=== PATIENT | male | born 1990 | race Caucasian/White ===

== ENCOUNTER 2024-08-30 02:34 | Emergency (ER) | payer OTHER, SELFPAY ==
[2024-08-30 02:43] VITALS: BP 150/92; PULSE 110; O2SAT 94
[2024-08-30 02:45] VITALS: BMI 25.1
[2024-08-30 02:47] VITALS: BP 107/80; PULSE 95; RESP 19; TEMP 36.8; O2SAT 99
[2024-08-30 03:00] LABS: MANUAL DIFF FLAG NO
[2024-08-30 03:01] LABS: Basophils Percent Auto 0.3 % (0-2); Eosinophils Absolute Auto 0.1 X10*3/uL (0.0-0.4); Hematocrit 36.2 % (42.0-52.0); Hemoglobin 12.8 g/dl (14.0-18.0); Imm Gran Abs Auto 0.02 X10*3/uL (0.00-0.03); Imm Gran Pct Auto 0.2 % (0.0-0.4); Lymphocytes Absolute Auto 2.3 X10*3/uL (1.2-4.9); Lymphocytes Percent Auto 25.5 % (20-40); Mean Corpuscular HGB Conc 35.4 g/dl (31.0-36.0); Mean Corpuscular Hemoglobin 28.9 pg (27.0-33.0); Mean Corpuscular Volume 81.7 fL (80.0-98.0); Mean Platelet Volume 9.6 fL (9.4-12.4); Monocytes Absolute Auto 0.9 X10*3/uL (0.1-1.2); Monocytes Percent Auto 9.7 % (2-11); Neutrophils Absolute Auto 5.8 x10*3/uL (2.0-8.3); Neutrophils Percent Auto 63.3 % (45-73); Platelet Count 268 X10*3/uL (160-400); Red Blood Count 4.43 X10*6/uL (4.60-5.80); Red Cell Distribution Width 12.9 % (11.0-16.0); White Blood Count 9.2 X10*3/uL (4.8-10.8)
--- NOTE | 2024-08-30 03:16 | ED_ITS ---
HPI - Psych General Chief Complaint: Psychiatric Symptoms Stated Complaint: behavioral health/ detox Time Seen by Provider: 08/30/24 03:10 Source: patient and EMS Mode of arrival: EMS Limitations: no limitations History of Present Illness ED Provider: HPI Narrative: Patient's history of substance abuse using cocaine and heroin looking for detox and his mental and housing conditions patient has been homeless off and on this time for last 1 week was wearing shoes for last 3 days which were soaked in water Related Data Allergies Allergy/AdvReac Type Severity Reaction Status Date / Time No Known Allergies Allergy Verified 08/30/24 03:00 Review of Systems 2 Review of Systems: Yes all other systems are reviewed and are negative PMFSH Social History Social History Advance Directives: No Advance Directives Information Provided: Yes Physical Exam 2 Vital Signs: Vital Signs: Last Vital Signs Temp 98.3 F 08/30/24 02:47 Pulse 95 08/30/24 02:47 Resp 19 08/30/24 02:47 BP 107/80 08/30/24 02:47 Pulse Ox 99 08/30/24 02:47 O2 Del Method Room Air 08/30/24 02:47 BMI result Body Mass Index 25.1 Appearance: Alert. Oriented X3. No acute distress. Eyes: PERRLA, No Nystagmus ENT: Pharynx normal. Oral Mucosa moist Neck: Normal inspection. Neck supple. CVS: Normal heart rate and rhythm. Pulses normal. Respiratory: No respiratory distress. Equal air entry bilateral, no wheezing/rales/rhonchi Abdomen: Soft and nontender. Bowel sounds are present, no mass palpable, no CVA tenderness Skin: Skin warm and dry. Normal skin color. Normal skin turgor. Extremities: No lower extremity edema. No calf tenderness macerated both soles without any open wounds small intact blisters bilateral sole Neuro: Oriented X 3. No motor deficit. No sensory deficit.No cerebellar signs , cranial nerves II-XII intact Medical Decision Making Medical Decision Making [facility] Narrative: Patient with cocaine and heroin use asking for some help for detox and placement will get recovery team to see the patient Lab Data [facility] Lab Attestation statement: I reviewed the patient's lab results. 08/30/24 02:55 08/30/24 02:55 Labs: Lab Results 08/30/24 Range/Units 02:55 WBC 9.2 (4.8-10.8) X10*3/uL RBC 4.43 L (4.60-5.80) X10*6/uL Hgb 12.8 L (14.0-18.0) g/dl Hct 36.2 L (42.0-52.0) % MCV 81.7 (80.0-98.0) fL MCH 28.9 (27.0-33.0) pg MCHC 35.4 (31.0-36.0) g/dl RDW 12.9 (11.0-16.0) % Plt Count 268 (160-400) X10*3/uL MPV 9.6 (9.4-12.4) fL Immature Gran % (Auto) 0.2 (0.0-0.4) % Neut % (Auto) 63.3 (45-73) % Lymph % (Auto) 25.5 (20-40) % Forrest % (Auto) 9.7 (2-11) % Eos % (Auto) 1.0 (0-4) % Baso % (Auto) 0.3 (0-2) % Lymph # (Auto) 2.3 (1.2-4.9) X10*3/uL Forrest # (Auto) 0.9 (0.1-1.2) X10*3/uL Eos # (Auto) 0.1 (0.0-0.4) X10*3/uL Baso # (Auto) 0.0 (0.0-0.2) X10*3/uL Abs Immat Gran (auto) 0.02 (0.00-0.03) X10*3/uL Absolute Neuts (auto) 5.8 (2.0-8.3) x10*3/uL Absolute Nucleated RBC 0.000 (0.0-0.012) X10*3/uL Nucleated RBC % (auto) 0.0 (0.0-0.2) /100WBC Sodium 142 (135-145) mmol/L Potassium 3.1 L (3.3-5.1) mmol/L Chloride 102 (96-108) mmol/L Carbon Dioxide 27 (22-29) mmol/L Anion Gap 16 (12-20) BUN 17 H (9-16) mg/dL Creatinine 0.70 (0.5-1.4) mg/dL Estim Creat Clear Calc 142.5 Estimated GFR > 60 Random Glucose 93 (60-115) mg/dL Calcium 9.1 (8.4-10.2) mg/dL Total Bilirubin 0.8 (0.0-1.0) mg/dL AST 99 H (5-37) U/L ALT 72 H (0-40) U/L Alkaline Phosphatase 81 (39-117) U/L Total Protein 7.9 (6.5-8.0) g/dL Albumin 4.1 (3.5-5.0) g/dL Ethyl Alcohol < 10 mg/dL Discharge Plan Discharge Clinical Impression: Polysubstance abuse Patient Disposition: Still a Patient Interventions: [place]-Suicide Risk Severity Scale Last Done: 08/30/24 06:25 Print Language: Georgian
--- NOTE | 2024-08-30 03:17 | PC.NURSE ---
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 RN placed an EKG order in for medical clearance and baseline cardiac status however upon EDT arrival to bedside for EKG pt refused. Pt was educated as to why the EKG was ordered and that he would not have to get up or walk anywhere however he still refused the EKG. He is calm and cooperative otherwise and resting comfortably in 7
[2024-08-30 03:27] LABS: Alanine Aminotransferase 72 U/L (0-40); Albumin Level 4.1 g/dL (3.5-5.0); Anion Gap 16 (12-20); Aspartate Amino Transferase 99 U/L (5-37); Bilirubin Total 0.8 mg/dL (0.0-1.0); Blood Urea Nitrogen 17 mg/dL (9-16); Calcium 9.1 mg/dL (8.4-10.2); Carbon Dioxide 27 mmol/L (22-29); Chloride 102 mmol/L (96-108); Creatinine Clr Calc Pharmacy 142.5; Estimated Glomerular Filt Rate > 60; Ethanol < 10 mg/dL; Glucose Random 93 mg/dL (60-115); Potassium 3.1 mmol/L (3.3-5.1); Sodium 142 mmol/L (135-145); Total Protein 7.9 g/dL (6.5-8.0)
[2024-08-30 03:44] LABS: Alkaline Phosphatase 81 U/L (39-117)
--- NOTE | 2024-08-30 08:09 | PC.NURSE ---
Patient reports takes no medications
--- NOTE | 2024-08-30 09:14 | MHC.RECOVRN ---
Recieved consult for pt interested in ATS. No UDS at this time, RN aware UDS is needed.
--- NOTE | 2024-08-30 09:39 | MHC.RECOVRN ---
Briefly met with pt in [facility]. Pt reports release from [facility] last week after being there for 18 months. Pt reports he received Sublocade prior to release. Pt reports he does not have a provider-educated pt on the [facility]. Discussed ATS. Plan for pt to present as walk in to [facility]. Provided pt with written resources. Denies questions or concerns at this time. AMANDA Pedersen, and CARE Team aware.
--- NOTE | 2024-08-30 10:16 | PC.NURSE ---
Patient denies SI/ HI, provided with resources by security investigator. Patient then asking why he he going to detox, Care team spoke with patient. Plan is for patient to take bus to [place] , patient in agreement with plan of care
[2024-08-30 10:20] VITALS: BP 107/80; PULSE 95; RESP 19; TEMP 36.8; O2SAT 99
--- NOTE | 2024-08-30 10:31 | MHC.CARE ---
Pt does not meet [facility] and will be discharged back to [facility] via [facility] from the CARE team. Provider in agreement.
== END 2024-08-30 10:34 | disposition home or self-care (01) ==
PROVIDERS: Internal Medicine; Emergency Provider Emergency Medicine Emergency Medical Services
DX: F19.10 Other psychoactive substance abuse, uncomplicated (principal); Z51.81 Encounter for therapeutic drug level monitoring; Z79.899 Other long term (current) drug therapy
CPT/HCPCS: 36415; 80053; 80307; 85025; 99283; 99284